=== PATIENT | male | born 1970 ===

== ENCOUNTER 2018-07-16 10:51 | Emergency (ER) | payer OTHER ==
[2018-07-16 11:16] VITALS: BP 142/83; PULSE 103; RESP 18
--- NOTE | 2018-07-16 11:30 | ED PDOC ---
Lower Extremity Pain/Injury Time Seen by Provider: 07/16/18 11:27 Chief Complaint (Nursing): Lower Extremity Problem/Injury Chief Complaint (Provider): foot injury History Per: Patient (47 y/o male here with right foot injury that occurred 3 days ago at work. States 100 lb weight dropped on heel while foot was plantarflexed position. Notes persistent pain and wanted to be evaluated prior to return work.) Past Medical History Reviewed: Historical Data, Nursing Documentation, Vital Signs Vital Signs: Last Vital Signs Temp 99.5 F 07/16/18 11:12 Pulse 103 H 07/16/18 11:12 Resp 18 07/16/18 11:12 BP 142/83 07/16/18 11:12 Pulse Ox 99 07/16/18 11:12 - Family History Family History: States: No Known Family Hx - Home Medications Home Medications: Ambulatory Orders Medication Instructions Recorded Ibuprofen [Motrin] 600 mg PO Q8 PRN #21 tab 07/16/18 - Allergies Allergies/Adverse Reactions: Allergies Allergy/AdvReac Type Severity Reaction Status Date / Time No Known Allergies Allergy Verified 07/16/18 11:16 Review of Systems ROS Statement: Except As Marked, All Systems Reviewed And Found Negative Physical Exam - Reviewed Nursing Documentation Reviewed: Yes Vital Signs Reviewed: Yes - Physical Exam Appears: Positive for: Well, Non-toxic, No Acute Distress Head Exam: Positive for: ATRAUMATIC, NORMAL INSPECTION, NORMOCEPHALIC Skin: Positive for: Normal Color, Warm, DRY Eye Exam: Positive for: EOMI, Normal appearance, PERRL ENT: Positive for: Normal ENT Inspection Neck: Positive for: Normal, Painless ROM Cardiovascular/Chest: Positive for: Regular Rate, Rhythm Respiratory: Positive for: CNT, Normal Breath Sounds Gastrointestinal/Abdominal: Positive for: Normal Exam, Soft Back: Positive for: Normal Inspection Extremity: Positive for: Normal ROM, Swelling (ecchymosis noted right toe. mild ecchymosis noted medial aspect of foot.), Other (Nontender knee. Nontender ankle. tenderness mostly medial right foot.) Neurological/Psych: Positive for: Awake, Alert, Normal Tone - ECG O2 Sat by Pulse Oximetry: 99 - Progress ED Course And Treament: Motrin 600 mg x 1 dose XRY FOOT: NEG FX Disposition - Clinical Impression Clinical Impression: Contusion of foot, right - Patient ED Disposition Is Patient to be Admitted: No - Disposition Referrals: Podiatry Clinic [Outside] Disposition: Routine/Home Disposition Time: 12:22 Condition: FAIR Prescriptions: Ibuprofen [Motrin] 600 mg PO Q8 PRN #21 tab PRN Reason: Pain, Moderate (4-7) Instructions: Contusion (DC) Forms: [facility] ED School/Work Excuse Print Language: AZERBAIJANI
--- NOTE | 2018-07-16 12:46 | RAD ---
Date of service: 07/16/2018 PROCEDURE: Right Foot Radiographs. HISTORY: foot injury COMPARISON: None. TECHNIQUE: 3 views obtained. FINDINGS: BONES: No interval acute cardiopulmonary disease appreciated. JOINTS: Normal. SOFT TISSUES: Normal. OTHER FINDINGS: None. IMPRESSION: Unremarkable right foot radiographs.
[2018-07-16 13:28] VITALS: TEMP 99
[2018-07-16 13:29] VITALS: O2SAT 99
== END 2018-07-16 13:22 | disposition home or self-care (01) ==
LOC: H.ER 10:51
DX: S90.31XA Contusion of right foot, initial encounter (principal)